=== PATIENT | female | born 1985 | race Two or more races ===

== ENCOUNTER 2021-05-09 06:42 | Inpatient (IN) | payer OTHER ==
[~2021-05-09] VITALS: Ht 167.6 cm; Wt 83.0 kg
--- NOTE | 2021-05-09 06:54 | NUR ---
PATIENT IS RECIEVED SAYING THAT SHE HAS EXTREME GALLBLADDER PAIN. PATIENTS SAYS THAT SHE WILL BE OPERATED ON NEXT WEEK BY DR. MONDRAGON, BUT CANNOT TAKE THE PAIN SHE IS CURRENTLY IN. THE PAIN STARTED LAST NIGHT SHE SAYS.
--- NOTE | 2021-05-09 08:22 | NUR ---
SE CANALIZA Y SE REALIZA YAAKOV DE MUESTRAS A PACIENTE BAJO MEDIDAS ASEPTICAS Y DE SEGURIDAD. SE ORIENTA A PACIENTE ACERCA DEL TRATAMIENTO OFRECIDO EN JAYSON DE EMERGENCIAS. AL MOMETNO PACIENTE REHUSA DEMEROL ORDENADO POR DR HUGHES Y SE NOTIFICA. DRA HUGHES ORDENA TORADOL 30MG IV. SE MANTIENE PACIENTE EN OBASERVACION Y SE OFRECEN RONDAS PREVENTIVAS. PACIENTE PENDIENTE A SONOGRAMA ADBDOMINAL. PACIENTE NPO.
== END 2021-05-12 13:53 | disposition home or self-care (01) | DRG 419 ==
LOC: ER 06:42 → SEC-K 09:29 → MEDJ 09:29 → MEDI 14:05 → MEDJ 14:12
PROVIDERS: Surgery; ADMIT Internal Medicine; ATTEND Internal Medicine
PROC: BF50200 Other Imaging of Bile Ducts using Fluorescing Agent, Indocyanine Green Dye, Intraoperative (ICD-10-PCS; 2021-05-10)
PROC: 0FT44ZZ Resection of Gallbladder, Percutaneous Endoscopic Approach (ICD-10-PCS; principal; 2021-05-10 13:00)
DX: K80.66 Calculus of gallbladder and bile duct with acute and chronic cholecystitis without obstruction (principal); Z20.822 Contact with and (suspected) exposure to COVID-19